=== PATIENT | male | born 2000 | race Caucasian/White ===

== ENCOUNTER 2022-02-16 20:05 | Emergency (ER) | payer SELFPAY ==
[2022-02-16] MEDS ORDERED: Morphine 4 MG/ML VIAL ONE (21:33)
== END 2022-02-16 22:00 | disposition home or self-care (01) ==
LOC: ERS 20:05
DX: S70.11XA Contusion of right thigh, initial encounter (principal); W22.8XXA Striking against or struck by other objects, initial encounter
CPT/HCPCS: 76936; 96374; J2270